=== PATIENT | female | born 1980 | race Two or more races ===

== ENCOUNTER 2020-02-28 11:45 | Inpatient (IN) | payer OTHER ==
[~2020-02-28] VITALS: Ht 165.1 cm; Wt 2.7 kg
[2020-03-09] MEDS ORDERED: ATABEX DHA 200200 MG PO (19:34)
[2020-03-12] MEDS ORDERED: KETO10TA2 PO (07:16)
[2020-03-12] MEDS ORDERED: OXYC1TAB9 PO (07:17)
== END 2020-03-12 14:44 | disposition home or self-care (01) | DRG 788 ==
LOC: OB/GYN 03-04 11:45 → LDR 03-09 18:31 → SURG-SUITE 03-09 18:31
PROVIDERS: ADMIT Obstetrics & Gynecology; ATTEND Obstetrics & Gynecology
PROC: 4A1HXCZ Monitoring of Products of Conception, Cardiac Rate, External Approach (ICD-10-PCS; 2020-03-09)
PROC: 10D00Z1 Extraction of Products of Conception, Low, Open Approach (ICD-10-PCS; principal; 2020-03-09 21:00)
DX: O76 Abnormality in fetal heart rate and rhythm complicating labor and delivery (principal); Z3A.39 39 weeks gestation of pregnancy; Z22.330 Carrier of Group B streptococcus